=== PATIENT | male | born 1950 | race Caucasian/White ===

== ENCOUNTER 2016-12-18 18:48 | Inpatient (IN) | payer MEDICARE, OTHER ==
--- NOTE | 2016-12-18 19:23 | ED Physician Chart ---
Chief Complaint/HPI - Patient Information Date Seen:: 12/18/16 Time Seen:: 19:05 Chief Complaint:: Agitation History of Present Illness:: onset x 2 days of combativeness, anger, anxiety, and agitation; no report of SIs , H/As, Neck Pain, C/P, SOB, Abd. pain, A/N/V/D/C, fever, chills, or urinary s/s Allergies:: Allergies Allergy/AdvReac Type Severity Reaction Status Date / Time No Known Allergies Allergy Verified 12/18/16 18:59 Vitals:: Vital Signs - 8 hr 12/18/16 19:05 Temp 97.6 F HR 65 RR 16 BP 135/89 O2 Sat % 98 Historian:: Patient, EMS Review:: Nurse's Note Reviewed, EMS run form Reviewed, Transfer documents Reviewed Review of Systems - Review of Systems General/Constitutional: Fever, Chills, No weight loss, Weakness, No diaphoresis , No edema, No loss of appetite Skin: No skin lesions, No rash, No bruising Head: No headache, No light-headedness Eyes: No loss of vision, No pain, No diplopia ENT: No earache, Nasal drainage, No sore throat, Tinnitus Neck: No neck pain, No swelling, No thyromegaly, No stiffness, No mass noted Cardio Vascular: No chest pain, No palpitations, No PND, No orthopnea, No edema Pulmonary: No SOB, No cough, No sputum, No wheezing GI: No nausea, No vomiting, No diarrhea, No pain, No melena, No hematochezia, No constipation, No hematemesis G/U: No dysuria, No frequency, No hematuria Musculoskeletal: No bone or joint pain, No back pain, No muscle pain Endocrine: No polyuria, No polydipsia Psychiatric: Prior psych history, Depression, Anxiety, No suicidal ideation, No homicidal ideation, No auditory hallucination, No visual hallucination Hematopoietic: No bruising, No lymphadenopathy Allergic/Immuno: No urticaria, No angioedema Neurological: No syncope, No focal symptoms, Weakness, No paresthesia, No headache, No seizure, Dizziness, Confusion, Vertigo Past Medical History - Past Medical History Obtainable: Yes Past Medical History: HTN, CAD, CVA/TIA, Dyslipidemia Family History: Diabetes Melitus, HTN Social History: Non Smoker, No Alcohol, No Drug Use, Single, Care Facility Surgical History: None Psychiatricy History: Depression, Bipolar Medication: Reviewed Physical Exam - Physical Examination General/Constitutional: Awake, Well-developed, well-nourished, Alert, No distress, GCS 15, Non-toxic appearing, Ambulatory Head: Atraumatic Eyes: Lids, conjuctiva normal, PERRL, EOMI Skin: Nl inspection, No rash, No skin lesions, No ecchymosis, Well hydrated, No lymphadenopathy ENMT: External ears, nose nl, Nasal exam nl, Lips, teeth, gums nl Neck: Nontender, Full ROM w/o pain, No JVD, No nuchal rigidity, No bruit, No mass, No stridor Respiratory: Nl effort/Exclusion, Clear to Auscultation, No Wheeze/Rhonchi/Rales Cardio Vascular: RRR, No murmur, gallop, rubs, NL S1 S2 GI: No tenderness/rebounding/guarding, No organomegaly, No hernia, Normal BS's, Nondistended, No mass/bruits, No McBurney tenderness : No CVA tenderness Extremities: No tenderness or effusion, Full ROM, normal strength in all extremities, No edema, Normal digits & nails Neuro/Psych: Alert/oriented, DTR's symmetric, Normal sensory exam, Normal motor strength, Judgement/insight normal, Mood normal, Normal gait, No focal deficits Misc: normal gait, Normal back, No paraspinal tenderness ED Septic Shock - . Is Septic Shock (SBP<90, OR Lactate>4 mmol\L) present?: No - <6hrs of presentation: Vital Signs: Vital Signs - 8 hr 12/18/16 19:05 Temp 97.6 F HR 65 RR 16 BP 135/89 O2 Sat % 98 Reassessment (Disposition) - Reassessment Reassessment Condition:: Improved - Aftercare/Follow up Instructions Aftercare/Follow-Up Instructions:: Counseled pt regarding lab results/diagnosis & need follow up, Counseled pt & family regarding lab results/diagnosis & need follow up - Patient Disposition Discharge/Transfer:: Acute Care w/in this hosp Accepting Physician:: Dr. Fermin Admitted to:: [facility] Admitting Psych Physician:: Dr. Terry Condition at Disposition:: Stable, Improved ED Discharge Plan - Patient Disposition Instructions: Psychosis
[2016-12-18 20:29] LABS: URINE BILIRUBIN NEGATIVE (NEGATIVE); URINE BLOOD SMALL (NEGATIVE); URINE GLUCOSE (UA) NEGATIVE (NEGATIVE); URINE KETONE NEGATIVE (NEGATIVE); URINE PROTEIN 30 mg/dL (NEGATIVE); URINE UROBILINOGEN 0.2 E.U./dL (0.2 - 1.0)
[2016-12-18 21:03] LABS: AMPHETAMINE URINE NEGATIVE (NEGATIVE); BARBITURATES URINE NEGATIVE (NEGATIVE); METHADONE URINE NEGATIVE (NEGATIVE)
[2016-12-18 21:05] LABS: URINE COLOR YELLOW
[2016-12-18 21:23] LABS: URINE BACTERIA NONE SEEN /hpf (NONE SEEN); URINE EPITHELIAL CELLS NONE SEEN /lpf (FEW)
[2016-12-18] MEDS ORDERED: Magnesium Hydroxide (MOM) 30 mL UDC PO PRN ×2 (21:34→21:40)
[2016-12-18] MEDS ORDERED: Fleet Enema 135 mL RC PRN (21:34)
[2016-12-18 22:39] VITALS: BP 109/57
--- NOTE | 2016-12-19 01:09 | Admit Criteria Form ---
Admit Criteria Forms - Admit Criteria Diagnosis: PSYCHIATRIC DISORDERS (Place 'X' for any and all applicable criteria): Ongoing inpatient care may be needed for 1 or more of the following(1)(2)(3)(4)( 6)(7)(8): [ ]I. Danger to self or others not manageable at lower level of care. [ ]II. Grave disability (eg, inability to perform self care necessary at lower level of care) [ X]III. Agitation or inappropriate behavior interfering with care for primary condition (eg, attempting to discontinue lines or drains prematurely, unable to cooperate with respiratory care) [ ]IV. Severe disability or disorder indicated by ALL of the following: [ ]a) Severe behavioral health disorder-related symptoms or condition indicated by 1 or more of the following: [ ]i) Severe problem with cognition, memory, judgment, or impulse control [ ]ii) Severe clinical manifestations (eg, hallucinations, delusions, other acute psychotic symptoms, efe, extreme agitation or anxiety) [ ]b) Patient management at lower level of care is not feasible until acute intervention or modification is initiated. Extended stay beyond goal length of stay for the primary condition may be needed until ALLof the following are present(1)(2)(3)(4)(722)(23): [ ]a) Danger to self or others is absent or manageable at lower level of care [ ]b) Behavior crisis management, including physical or chemical restraints, is required and is not available at a lower level of care. [ ]c) Behavioral symptoms (e.g., agitation, somnolence, inappropriate behavior) are present, and are not manageable at a lower level of care. [ ]d) Patient cannot understand follow-up treatment and crisis plan. [ ]e) Provider and supports are sufficiently available at lower level of care. [ ]f) Patient can participate (e.g., verify absence of plan for harm) and is in needed of monitoring. The original [facility] [employer] content created by [facility] has been revised. The portions of the content which have been revised are identified through the use of italic text or in bold, and [facility] [facility] [employer] has neither reviewed nor approved the modified material. All other unmodified content is copyright [facility]. Please see references footnoted in the original [facility] edition 2017 Admit Criteria Met?: Yes
--- NOTE | 2016-12-19 09:14 | History and Physical ---
History of Present Illness - HPI Chief Complaint: increased in agitation HPI: Patient was send to [facility] for evaluation and treatment due to increased in agitation Vital Signs: Last Vital Signs Temp 98.4 F 12/18/16 21:26 Pulse 70 12/18/16 21:26 Resp 18 12/18/16 21:26 BP 109/57 12/18/16 22:01 Pulse Ox 95 12/18/16 21:26 Past Medical History Cardiovascular: Report: CHF, HTN Pulmonary: Report: No Pertinent Hx AP[employer]ISE COUNSELOR: Report: Dementia GI: Report: No Pertinent Hx Psych: Report: Psychosis, Schizophrenia Musculoskeletal: Report: No Pertinent Hx Rheumatologic: Report: No pertinent Hx Infectious Disease: Report: No Pertinent Hx Renal/: Report: No Pertinent Hx Endocrine: Report: No Pertinent Hx Dermatology: Report: No Pertinent Hx - Past Surgical History Past Surgical History: No pertinent Hx Family Medical History - Family Member Mother History Unknown: Yes Ethnicity: Unknown Living Status: Unknown Hx Family Cancer: No Hx Family Congestive Heart Failure: No Hx Family Stroke: No Hx Family Diabetes: No Hx Family HIV: No Hx Family COPD: No Hx Family Tuberculosis: No Social History Smoke: No Alcohol: None Drugs: None Lives: [facility] Domestic Violence: Negative - Medications Home Medications: Home Medication Medication Instructions Recorded Type Acetaminophen [Tylenol] 650 mg PO Q4HR PRN 12/18/16 History Aspirin [Aspirin Chewable] 81 mg PO DAILY 12/18/16 History Atorvastatin Calcium [Lipitor] 20 mg PO HS 12/18/16 History Isosorbide Dinitrate 5 mg PO BID 12/18/16 History Lisinopril [Zestril] 20 mg PO DAILY 12/18/16 History Magnesium Hydroxide [Milk of 30 ml PO HS PRN 12/18/16 History Magnesia] Meclizine [Antivert*] 12.5 mg PO Q8HR PRN 12/18/16 History Metoprolol Succinate [Toprol Xl] 50 mg PO DAILY 12/18/16 History Multivitamin [Multivitamins] 1 cap PO DAILY 12/18/16 History - Allergies Allergies/Adverse Reactions: Allergies Allergy/AdvReac Type Severity Reaction Status Date / Time No Known Allergies Allergy Verified 12/18/16 18:59 Review of Systems - Review of Systems Constitutional: Report: No Significant Eyes: Report: No Significant ENT: Report: No Significant Respiratory: Report: No Significant Cardiovascular: Report: No Significant Gastrointestinal: Report: No Significant Genitourinary: Report: No Significant Musculoskeletal: Report: No Significant Skin: Report: No Significant Neurological: Report: Other (Agitation) Physical Exam - Physical Exam HEENT: Report: Ears Nose Throat within normal limits Neck: Report: Within normal limits Cardiovascular Systems: Report: Regular, Rate and Rhythm Respiratory: Report: Breath Sounds are within normal limits Abdomen: Report: Non-tender to palpation Back: Report: Inspection of back is within normal limits. Extremities: Report: Non-tender to palpation. Skin: Report: Color of skin is within normal limits Neuro/Psych: Report: Disoriented to name time or place, Depressed affect, No motor deficit, No sensory deficit - Lab Results All Lab Results last 24 hours: Laboratory Last Values Urine Source CLEAN C 12/18/16 19:40 Urine Color YELLOW 12/18/16 19:40 Urine Clarity SLIGHT CLOUDY (CLEAR) 12/18/16 19:40 Urine pH 6.0 (4.6 - 8.0) 12/18/16 19:40 Ur Specific [place] 1.010 (1.005-1.030) 12/18/16 19:40 Urine Protein 30 mg/dL (NEGATIVE) H 12/18/16 19:40 Urine Glucose (UA) NEGATIVE mg/dL (NEGATIVE) 12/18/16 19:40 Urine Ketones NEGATIVE mg/dL (NEGATIVE) 12/18/16 19:40 Urine Blood SMALL (NEGATIVE) H 12/18/16 19:40 Urine Nitrate POSITIVE (NEGATIVE) H 12/18/16 19:40 Urine Bilirubin NEGATIVE (NEGATIVE) 12/18/16 19:40 Urine Urobilinogen 0.2 E.U./dL (0.2 - 1.0) 12/18/16 19:40 Ur Leukocyte Esterase MODERATE (NEGATIVE) H 12/18/16 19:40 Urine RBC 5-10 /hpf (0-5) H 12/18/16 19:40 Urine WBC 6-10 /hpf (0-5) H 12/18/16 19:40 Ur Epithelial Cells NONE SEEN /lpf (FEW) 12/18/16 19:40 Urine Bacteria NONE SEEN /hpf (NONE SEEN) 12/18/16 19:40 Urine Opiates Screen NEGATIVE (NEGATIVE) 12/18/16 19:40 Urine Methadone Screen NEGATIVE (NEGATIVE) 12/18/16 19:40 Ur Barbiturates Screen NEGATIVE (NEGATIVE) 12/18/16 19:40 Ur Tricyclics Screen NEGATIVE (NEGATIVE) 12/18/16 19:40 Ur Phencyclidine Scrn NEGATIVE (NEGATIVE) 12/18/16 19:40 Amphetamines Screen NEGATIVE (NEGATIVE) 12/18/16 19:40 U Methamphetamines Scrn NEGATIVE (NEGATIVE) 12/18/16 19:40 U Benzodiazepines Scrn NEGATIVE (NEGATIVE) 12/18/16 19:40 U Cocaine Metab Screen NEGATIVE (NEGATIVE) 12/18/16 19:40 U Cannabinoids Screen NEGATIVE (NEGATIVE) 12/18/16 19:40 - Assessment Assessment: Patient is awake, calm, confused, not oriented, patient refused to draw blood. Dx: Increased in agitation, HTN, CAD, Dyslipemia, Schizophrenia. - Plan Plan: Patient in under psychiatric care, and under SNF meds. Will continue to monitor.
[2016-12-19] MEDS: Aspirin 81mg Chewable Tab PO SCH (10:00)
[2016-12-19] MEDS: Multivitamin Tab PO SCH (10:00)
[2016-12-19] MEDS: Atorvastatin Calcium 10 MG TAB PO SCH (21:02)
--- NOTE | 2016-12-20 04:44 | Psychosocial Evaluation ---
DATE OF SERVICE: 12/19/2016 IDENTIFYING DATA: The patient is a 66-year-old male, resident of [facility] in [place]. Information obtained by directly interviewing the patient as well as reviewing the admission papers and talking to the staff members. The patient is a 66-year-old resident of the above mentioned post-acute care. The patient is reported to have been getting easily agitated and upset and the patient has been referred over here for stabilization. The patient has a history of multiple medical problems including coronary artery disease with multiple MIs and status post CABG and a history of CVA, hypertension, hyperlipidemia. The patient is reported to have been hospitalized on many occasions for the medical condition. The patient is not currently on any psychotropic medications, but has been getting easily agitated and not letting the staff to care for him. PAST PSYCHIATRIC HISTORY: Details are not known. MEDICAL HISTORY AND PHYSICAL EXAMINATION: Requested and done by Dr. Fermin. SUBSTANCE ABUSE HISTORY: None. SOCIAL HISTORY: The patient is a resident of a senior living facility. There is no history of alcohol use. STRENGTH AND ASSETS: The patient seems to be motivated. MENTAL STATUS EXAMINATION: The patient is a 66-year-old, looking older than his stated age, superficially cooperative. Eye contact is poor. Mood is very depressed. Affect is constricted. The patient is isolative and withdrawn. The patient is sleeping most of the time. The patient is not presenting with any agitation at this time. The patient denies any command hallucinations. The patient is not presenting with any delusions at this time. The patient is alert and he is oriented to the place but not to time. Insight and judgment at this time are noted to be fair. Impulse control seems to be poor prior to the hospitalization. The patient is not presenting with any threats to harm self or others. DIAGNOSTIC IMPRESSION: 1. Depressive disorder, not otherwise specified. B. Rule out dementia and behavioral change, secondary trait. IMMEDIATE TREATMENT PLAN: The patient is going to be observed on inpatient unit, provided with supportive psychotherapy. The patient is going to be only placed on the Ativan on a p.r.n. basis and the patient is going to be closely monitored. Once stabilized, the patient is going to be discharged to the facility for followup on outpatient basis. JOB# [id number]
--- NOTE | 2016-12-20 08:57 | General Progress Note ---
Subjective - Review of Systems Service Date: 12/20/16 Subjective: Patient is confused Objective - Results Recent Labs: Laboratory Last Values Urine Source CLEAN C 12/18/16 19:40 Urine Color YELLOW 12/18/16 19:40 Urine Clarity SLIGHT CLOUDY (CLEAR) 12/18/16 19:40 Urine pH 6.0 (4.6 - 8.0) 12/18/16 19:40 Ur Specific [place] 1.010 (1.005-1.030) 12/18/16 19:40 Urine Protein 30 mg/dL (NEGATIVE) H 12/18/16 19:40 Urine Glucose (UA) NEGATIVE mg/dL (NEGATIVE) 12/18/16 19:40 Urine Ketones NEGATIVE mg/dL (NEGATIVE) 12/18/16 19:40 Urine Blood SMALL (NEGATIVE) H 12/18/16 19:40 Urine Nitrate POSITIVE (NEGATIVE) H 12/18/16 19:40 Urine Bilirubin NEGATIVE (NEGATIVE) 12/18/16 19:40 Urine Urobilinogen 0.2 E.U./dL (0.2 - 1.0) 12/18/16 19:40 Ur Leukocyte Esterase MODERATE (NEGATIVE) H 12/18/16 19:40 Urine RBC 5-10 /hpf (0-5) H 12/18/16 19:40 Urine WBC 6-10 /hpf (0-5) H 12/18/16 19:40 Ur Epithelial Cells NONE SEEN /lpf (FEW) 12/18/16 19:40 Urine Bacteria NONE SEEN /hpf (NONE SEEN) 12/18/16 19:40 Urine Opiates Screen NEGATIVE (NEGATIVE) 12/18/16 19:40 Urine Methadone Screen NEGATIVE (NEGATIVE) 12/18/16 19:40 Ur Barbiturates Screen NEGATIVE (NEGATIVE) 12/18/16 19:40 Ur Tricyclics Screen NEGATIVE (NEGATIVE) 12/18/16 19:40 Ur Phencyclidine Scrn NEGATIVE (NEGATIVE) 12/18/16 19:40 Amphetamines Screen NEGATIVE (NEGATIVE) 12/18/16 19:40 U Methamphetamines Scrn NEGATIVE (NEGATIVE) 12/18/16 19:40 U Benzodiazepines Scrn NEGATIVE (NEGATIVE) 12/18/16 19:40 U Cocaine Metab Screen NEGATIVE (NEGATIVE) 12/18/16 19:40 U Cannabinoids Screen NEGATIVE (NEGATIVE) 12/18/16 19:40 - Physical Exam Vitals and I&O: Vital Signs Temp 97.6 F 12/19/16 14:00 Pulse 80 12/19/16 17:20 Resp 18 12/19/16 14:00 BP 138/94 12/19/16 17:20 Pulse Ox 97 12/19/16 14:00 Intake & Output 12/19/16 12/20/16 12/20/16 18:59 06:59 18:59 Intake Total 960 Output Total 400 Balance 560 Intake: Oral 960 Output: Urine 400 Other: # Bowel Movements 0 Active Medications: Current Medications Acetaminophen (Tylenol) 650 mg PO Q4HR PRN PRN Reason: Pain (Mild) Stop: 02/16/17 21:39 Aspirin (Aspirin Chewable) 81 mg PO DAILY [facility] Stop: 02/17/17 08:59 Last Admin: 12/19/16 10:00 Dose: 81 mg Atorvastatin Calcium (Lipitor) 20 mg PO HS [facility] Stop: 02/17/17 20:59 Last Admin: 12/19/16 21:02 Dose: 20 mg Isosorbide Dinitrate (Isordil) 5 mg PO BID [facility] Stop: 02/17/17 08:59 Last Admin: 12/19/16 17:20 Dose: Not Given Lisinopril (Zestril) 20 mg PO DAILY [facility] Stop: 02/17/17 08:59 Last Admin: 12/19/16 10:00 Dose: 20 mg Lorazepam (Ativan) 0.5 mg PO Q6H PRN; Protocol PRN Reason: Anxiety/Agitation Stop: 02/16/17 21:33 Magnesium Hydroxide (Milk Of Magnesia) 30 ml PO HS PRN PRN Reason: Constipation Stop: 02/16/17 21:33 Meclizine HCl (Antivert) 12.5 mg PO Q8HR PRN PRN Reason: Dizziness Stop: 02/16/17 21:39 Metoprolol Succinate (Toprol Xl) 50 mg PO DAILY [facility] Stop: 02/17/17 08:59 Last Admin: 12/19/16 10:00 Dose: 50 mg Multivitamins/Vitamin C (Theragran) 1 tab PO DAILY [facility] Stop: 02/17/17 08:59 Last Admin: 12/19/16 10:00 Dose: 1 tab Sodium Phosphate (Fleet Enema) 135 ml RC DAILY PRN PRN Reason: Constipation Stop: 10/22/17 21:33 Zolpidem Tartrate (Ambien) 5 mg PO HS PRN PRN Reason: Insomnia Stop: 02/16/17 21:33 General: Other (Sleeping but arousable) HEENT: Atraumatic Neck: Supple Cardiovascular: Regular rate Lungs: Clear to auscultation Abdomen: Bowel sounds, Soft, Other (Suprapubic catheter in place.) Extremities: Other (No edema) Neurological: Other (Unstable gait) Skin: Other (Warm and dry) Psych/Mental Status: Other (Confused, Not oriented) Assessment/Plan - Assessment Assessment: Patient is sleeping but arousable, calm, confused, not oriented, patient refused to draw blood. Dx: Increased in agitation, HTN, CAD, Dyslipemia, Schizophrenia, Suprapubic catheter in place. - Plan Plan: Patient in under psychiatric care, and under SNF meds. Will continue to monitor.
[2016-12-20] MEDS: Aspirin 81mg Chewable Tab PO SCH (16:27)
[2016-12-20] MEDS: Multivitamin Tab PO SCH (16:29)
[2016-12-20] MEDS: Atorvastatin Calcium 10 MG TAB PO SCH (20:45)
--- NOTE | 2016-12-21 07:36 | Progress Notes ---
DATE: 12/20/2016 PSYCHIATRIC PROGRESS NOTE SUBJECTIVE: Staff was spoken to. The patient is interviewed. Mood is noted to be irritable. Affect is constricted. Coping skills are noted to be poor. The patient is screaming and yelling. The patient could not be contained. The patient has to be given a dose of lorazepam to calm him down. The patient has been insisting that there is no reason for him to be in here and is demanding that he should be discharged. ASSESSMENT: The patient is still very agitated and impulsive. PLAN: To continue the patient with the supportive therapy. I encouraged the patient to verbalize the concerns rather than to act out. JOB# [id number]
[2016-12-21] MEDS: Multivitamin Tab PO SCH (09:00)
[2016-12-21] MEDS: Aspirin 81mg Chewable Tab PO SCH (09:00)
[2016-12-21] MEDS: Atorvastatin Calcium 10 MG TAB PO SCH (20:47)
[2016-12-22] MEDS: Aspirin 81mg Chewable Tab PO SCH (09:27)
[2016-12-22] MEDS: Multivitamin Tab PO SCH (09:28)
--- NOTE | 2016-12-22 10:55 | General Progress Note ---
Subjective - Review of Systems Service Date: 12/22/16 Subjective: Patient is confused Objective - Results Recent Labs: Laboratory Last Values Urine Source CLEAN C 12/18/16 19:40 Urine Color YELLOW 12/18/16 19:40 Urine Clarity SLIGHT CLOUDY (CLEAR) 12/18/16 19:40 Urine pH 6.0 (4.6 - 8.0) 12/18/16 19:40 Ur Specific [place] 1.010 (1.005-1.030) 12/18/16 19:40 Urine Protein 30 mg/dL (NEGATIVE) H 12/18/16 19:40 Urine Glucose (UA) NEGATIVE mg/dL (NEGATIVE) 12/18/16 19:40 Urine Ketones NEGATIVE mg/dL (NEGATIVE) 12/18/16 19:40 Urine Blood SMALL (NEGATIVE) H 12/18/16 19:40 Urine Nitrate POSITIVE (NEGATIVE) H 12/18/16 19:40 Urine Bilirubin NEGATIVE (NEGATIVE) 12/18/16 19:40 Urine Urobilinogen 0.2 E.U./dL (0.2 - 1.0) 12/18/16 19:40 Ur Leukocyte Esterase MODERATE (NEGATIVE) H 12/18/16 19:40 Urine RBC 5-10 /hpf (0-5) H 12/18/16 19:40 Urine WBC 6-10 /hpf (0-5) H 12/18/16 19:40 Ur Epithelial Cells NONE SEEN /lpf (FEW) 12/18/16 19:40 Urine Bacteria NONE SEEN /hpf (NONE SEEN) 12/18/16 19:40 Urine Opiates Screen NEGATIVE (NEGATIVE) 12/18/16 19:40 Urine Methadone Screen NEGATIVE (NEGATIVE) 12/18/16 19:40 Ur Barbiturates Screen NEGATIVE (NEGATIVE) 12/18/16 19:40 Ur Tricyclics Screen NEGATIVE (NEGATIVE) 12/18/16 19:40 Ur Phencyclidine Scrn NEGATIVE (NEGATIVE) 12/18/16 19:40 Amphetamines Screen NEGATIVE (NEGATIVE) 12/18/16 19:40 U Methamphetamines Scrn NEGATIVE (NEGATIVE) 12/18/16 19:40 U Benzodiazepines Scrn NEGATIVE (NEGATIVE) 12/18/16 19:40 U Cocaine Metab Screen NEGATIVE (NEGATIVE) 12/18/16 19:40 U Cannabinoids Screen NEGATIVE (NEGATIVE) 12/18/16 19:40 - Physical Exam Vitals and I&O: Vital Signs Temp 97.2 F 12/22/16 06:43 Pulse 68 12/22/16 09:27 Resp 20 12/22/16 06:43 BP 129/100 12/22/16 09:27 Pulse Ox 97 12/22/16 06:43 Intake & Output 12/21/16 12/22/16 12/22/16 18:59 06:59 18:59 Intake Total 1800 120 Output Total 600 750 Balance 1200 -630 Intake: Oral 1800 120 Output: Urine 600 750 Other: # Bowel Movements 0 Active Medications: Current Medications Acetaminophen (Tylenol) 650 mg PO Q4HR PRN PRN Reason: Pain (Mild) Stop: 02/16/17 21:39 Aspirin (Aspirin Chewable) 81 mg PO DAILY [facility] Stop: 02/17/17 08:59 Last Admin: 12/22/16 09:27 Dose: 81 mg Atorvastatin Calcium (Lipitor) 20 mg PO HS [facility] Stop: 02/17/17 20:59 Last Admin: 12/21/16 20:47 Dose: 20 mg Betamethasone/Clotrimazole (Lotrisone Cream) 1 appl TP BID [facility] Stop: 02/20/17 10:59 Isosorbide Dinitrate (Isordil) 5 mg PO BID [facility] Stop: 02/17/17 08:59 Last Admin: 12/22/16 09:27 Dose: 5 mg Lisinopril (Zestril) 20 mg PO DAILY [facility] Stop: 02/17/17 08:59 Last Admin: 12/22/16 09:26 Dose: 20 mg Lorazepam (Ativan) 0.5 mg PO Q6H PRN; Protocol PRN Reason: Anxiety/Agitation Stop: 02/16/17 21:33 Magnesium Hydroxide (Milk Of Magnesia) 30 ml PO HS PRN PRN Reason: Constipation Stop: 02/16/17 21:33 Meclizine HCl (Antivert) 12.5 mg PO Q8HR PRN PRN Reason: Dizziness Stop: 02/16/17 21:39 Last Admin: 12/20/16 17:27 Dose: 12.5 mg Metoprolol Succinate (Toprol Xl) 50 mg PO DAILY [facility] Stop: 02/17/17 08:59 Last Admin: 12/22/16 09:27 Dose: 50 mg Multivitamins/Vitamin C (Theragran) 1 tab PO DAILY [facility] Stop: 02/17/17 08:59 Last Admin: 12/22/16 09:28 Dose: 1 tab Mupirocin (Bactroban Oint) 1 appl NS BID [facility] Stop: 12/25/16 09:01 Last Admin: 12/21/16 17:52 Dose: Not Given Quetiapine Fumarate (Seroquel) 25 mg PO HS [facility] PRN Reason: Protocol Stop: 02/18/17 20:59 Sodium Phosphate (Fleet Enema) 135 ml RC DAILY PRN PRN Reason: Constipation Stop: 02/16/17 21:33 Zolpidem Tartrate (Ambien) 5 mg PO HS PRN PRN Reason: Insomnia Stop: 02/16/17 21:33 General: Other (Sleeping but arousable) HEENT: Atraumatic Neck: Supple Cardiovascular: Regular rate Lungs: Clear to auscultation Abdomen: Bowel sounds, Soft, Other (Suprapubic catheter in place.) Extremities: Other (No edema) Neurological: Other (Unstable gait) Skin: Other (Warm and dry) Psych/Mental Status: Other (Confused, Not oriented) Assessment/Plan - Assessment Assessment: Patient is sleeping but arousable, calm, confused, not oriented, patient refused to draw blood. Dx: Increased in agitation, HTN, CAD, Dyslipemia, Schizophrenia, Suprapubic catheter in place. - Plan Plan: Patient in under psychiatric care, and under SNF meds. Will continue to monitor.
[2016-12-22] MEDS: Betamethasone/Clotrimazole Cream 15 gm Tube TP SCH ×2 (16:07→17:33)
--- NOTE | 2016-12-22 19:03 | Progress Notes ---
DATE: 12/22/2016 PSYCHIATRIC PROGRESS NOTE SUBJECTIVE: Staff was spoken to. The patient is interviewed. Mood is noted to be irritable. Affect is constricted. The patient has been reluctant to comply with the medications and has been constantly testing the limits. Insight and judgment at this time are noted to be very much impaired. Impulse control is noted to be poor. The patient has been trying to be irritable. Affect is constricted. No side effects to medications are noted at this time. ASSESSMENT: The patient is still impulsive. PLAN: To continue the patient with the current medications. I encouraged the patient to verbalize the concerns rather than to act out. The Seroquel is going to be increased to 25 mg at bedtime and the patient is going to be encouraged to comply with the treatment. JOB# [id number]
[2016-12-22] MEDS: Atorvastatin Calcium 10 MG TAB PO SCH (20:36)
--- NOTE | 2016-12-23 02:35 | Progress Notes ---
DATE: 12/21/2016 PSYCHIATRIC PROGRESS NOTE SUBJECTIVE: Staff was spoken to. The patient is interviewed. Mood is noted to be irritable. Affect is constricted. The patient's insight and judgment at this time are noted to be impaired. Impulse control seems to be poor. The patient is refusing to comply with the medication. The patient is stating that he needs to go, but he does not want to go to the [facility] post[facility]acute care. The patient's coping skills are noted to be very poor. The patient is testing the limits. ASSESSMENT: The patient is still impulsive. PLAN: To continue the patient with supportive therapy. I encouraged the patient to verbalize the concerns rather than to act out. JOB# [id number]
[2016-12-23] MEDS: Multivitamin Tab PO SCH (08:56)
[2016-12-23] MEDS: Aspirin 81mg Chewable Tab PO SCH (08:58)
[2016-12-23] MEDS: Betamethasone/Clotrimazole Cream 15 gm Tube TP SCH ×2 (09:00→17:20)
--- NOTE | 2016-12-23 09:23 | General Progress Note ---
Subjective - Review of Systems Service Date: 12/23/17 Subjective: Patient is confused Objective - Results Recent Labs: Laboratory Last Values Urine Source CLEAN C 12/18/16 19:40 Urine Color YELLOW 12/18/16 19:40 Urine Clarity SLIGHT CLOUDY (CLEAR) 12/18/16 19:40 Urine pH 6.0 (4.6 - 8.0) 12/18/16 19:40 Ur Specific [place] 1.010 (1.005-1.030) 12/18/16 19:40 Urine Protein 30 mg/dL (NEGATIVE) H 12/18/16 19:40 Urine Glucose (UA) NEGATIVE mg/dL (NEGATIVE) 12/18/16 19:40 Urine Ketones NEGATIVE mg/dL (NEGATIVE) 12/18/16 19:40 Urine Blood SMALL (NEGATIVE) H 12/18/16 19:40 Urine Nitrate POSITIVE (NEGATIVE) H 12/18/16 19:40 Urine Bilirubin NEGATIVE (NEGATIVE) 12/18/16 19:40 Urine Urobilinogen 0.2 E.U./dL (0.2 - 1.0) 12/18/16 19:40 Ur Leukocyte Esterase MODERATE (NEGATIVE) H 12/18/16 19:40 Urine RBC 5-10 /hpf (0-5) H 12/18/16 19:40 Urine WBC 6-10 /hpf (0-5) H 12/18/16 19:40 Ur Epithelial Cells NONE SEEN /lpf (FEW) 12/18/16 19:40 Urine Bacteria NONE SEEN /hpf (NONE SEEN) 12/18/16 19:40 Urine Opiates Screen NEGATIVE (NEGATIVE) 12/18/16 19:40 Urine Methadone Screen NEGATIVE (NEGATIVE) 12/18/16 19:40 Ur Barbiturates Screen NEGATIVE (NEGATIVE) 12/18/16 19:40 Ur Tricyclics Screen NEGATIVE (NEGATIVE) 12/18/16 19:40 Ur Phencyclidine Scrn NEGATIVE (NEGATIVE) 12/18/16 19:40 Amphetamines Screen NEGATIVE (NEGATIVE) 12/18/16 19:40 U Methamphetamines Scrn NEGATIVE (NEGATIVE) 12/18/16 19:40 U Benzodiazepines Scrn NEGATIVE (NEGATIVE) 12/18/16 19:40 U Cocaine Metab Screen NEGATIVE (NEGATIVE) 12/18/16 19:40 U Cannabinoids Screen NEGATIVE (NEGATIVE) 12/18/16 19:40 - Physical Exam Vitals and I&O: Vital Signs Temp 98 F 12/23/16 06:58 Pulse 60 12/23/16 08:58 Resp 18 12/23/16 06:58 BP 134/85 12/23/16 08:58 Pulse Ox 95 12/23/16 06:58 Intake & Output 12/22/16 12/23/16 12/23/16 18:59 06:59 18:59 Intake Total 60 Balance 60 Intake: Oral 60 Other: # Voids 3 # Bowel Movements 0 Active Medications: Current Medications Acetaminophen (Tylenol) 650 mg PO Q4HR PRN PRN Reason: Pain (Mild) Stop: 02/16/17 21:39 Last Admin: 12/22/16 20:56 Dose: 650 mg Aspirin (Aspirin Chewable) 81 mg PO DAILY [facility] Stop: 02/17/17 08:59 Last Admin: 12/23/16 08:58 Dose: 81 mg Atorvastatin Calcium (Lipitor) 20 mg PO HS [facility] Stop: 02/17/17 20:59 Last Admin: 12/22/16 20:36 Dose: 20 mg Betamethasone/Clotrimazole (Lotrisone Cream) 1 appl TP BID [facility] Stop: 02/20/17 10:59 Last Admin: 12/23/16 09:00 Dose: 1 appl Isosorbide Dinitrate (Isordil) 5 mg PO BID [facility] Stop: 02/17/17 08:59 Last Admin: 12/23/16 08:58 Dose: 5 mg Lisinopril (Zestril) 20 mg PO DAILY [facility] Stop: 02/17/17 08:59 Last Admin: 12/23/16 08:58 Dose: 20 mg Lorazepam (Ativan) 0.5 mg PO Q6H PRN; Protocol PRN Reason: Anxiety/Agitation Stop: 02/16/17 21:33 Magnesium Hydroxide (Milk Of Magnesia) 30 ml PO HS PRN PRN Reason: Constipation Stop: 02/16/17 21:33 Meclizine HCl (Antivert) 12.5 mg PO Q8HR PRN PRN Reason: Dizziness Stop: 02/16/17 21:39 Last Admin: 12/20/16 17:27 Dose: 12.5 mg Metoprolol Succinate (Toprol Xl) 50 mg PO DAILY [facility] Stop: 02/17/17 08:59 Last Admin: 12/23/16 08:56 Dose: 50 mg Multivitamins/Vitamin C (Theragran) 1 tab PO DAILY [facility] Stop: 02/17/17 08:59 Last Admin: 12/23/16 08:56 Dose: 1 tab Mupirocin (Bactroban Oint) 1 appl NS BID [facility] Stop: 12/25/16 09:01 Last Admin: 12/23/16 09:07 Dose: Not Given Quetiapine Fumarate (Seroquel) 25 mg PO HS [facility] PRN Reason: Protocol Stop: 02/18/17 20:59 Last Admin: 12/22/16 20:36 Dose: 25 mg Sodium Phosphate (Fleet Enema) 135 ml RC DAILY PRN PRN Reason: Constipation Stop: 02/16/17 21:33 Zolpidem Tartrate (Ambien) 5 mg PO HS PRN PRN Reason: Insomnia Stop: 02/16/17 21:33 General: Other (Sleeping but arousable) HEENT: Atraumatic Neck: Supple Cardiovascular: Regular rate Lungs: Clear to auscultation Abdomen: Bowel sounds, Soft, Other (Suprapubic catheter in place.) Extremities: Other (No edema) Neurological: Other (Unstable gait) Skin: Other (Warm and dry) Psych/Mental Status: Other (Confused, Not oriented) Assessment/Plan - Assessment Assessment: Patient is sleeping but arousable, calm, confused, not oriented, patient refused to draw blood. Dx: Increased in agitation, HTN, CAD, Dyslipemia, Schizophrenia, Suprapubic catheter in place. - Plan Plan: Patient in under psychiatric care, and under SNF meds. Will continue to monitor.
[2016-12-23] MEDS: Atorvastatin Calcium 10 MG TAB PO SCH (20:46)
--- NOTE | 2016-12-24 00:34 | Progress Notes ---
DATE: 12/23/2016 PSYCHIATRIC PROGRESS NOTE SUBJECTIVE: Staff was spoken to. The patient is interviewed. Mood is noted to be irritable. Affect is constricted. Insight and judgment at this time are noted to be very much impaired. Impulse control is poor. The patient is testing the limits. The patient does not want to take any medications. The patient is very impulsive and is demanding that there is no reason for him to be taking the medications or being here. The patient's coping skills are noted to be very poor. The patient needs to be redirected. ASSESSMENT: The patient is still impulsive. PLAN: To continue the patient with supportive therapy. I encouraged the patient to verbalize the concerns rather than to act out. JOB# [id number]
--- NOTE | 2016-12-24 09:20 | General Progress Note ---
Subjective - Review of Systems Service Date: 12/24/16 Subjective: Patient is confused. Objective - Results Recent Labs: Laboratory Last Values Urine Source CLEAN C 12/18/16 19:40 Urine Color YELLOW 12/18/16 19:40 Urine Clarity SLIGHT CLOUDY (CLEAR) 12/18/16 19:40 Urine pH 6.0 (4.6 - 8.0) 12/18/16 19:40 Ur Specific [place] 1.010 (1.005-1.030) 12/18/16 19:40 Urine Protein 30 mg/dL (NEGATIVE) H 12/18/16 19:40 Urine Glucose (UA) NEGATIVE mg/dL (NEGATIVE) 12/18/16 19:40 Urine Ketones NEGATIVE mg/dL (NEGATIVE) 12/18/16 19:40 Urine Blood SMALL (NEGATIVE) H 12/18/16 19:40 Urine Nitrate POSITIVE (NEGATIVE) H 12/18/16 19:40 Urine Bilirubin NEGATIVE (NEGATIVE) 12/18/16 19:40 Urine Urobilinogen 0.2 E.U./dL (0.2 - 1.0) 12/18/16 19:40 Ur Leukocyte Esterase MODERATE (NEGATIVE) H 12/18/16 19:40 Urine RBC 5-10 /hpf (0-5) H 12/18/16 19:40 Urine WBC 6-10 /hpf (0-5) H 12/18/16 19:40 Ur Epithelial Cells NONE SEEN /lpf (FEW) 12/18/16 19:40 Urine Bacteria NONE SEEN /hpf (NONE SEEN) 12/18/16 19:40 Urine Opiates Screen NEGATIVE (NEGATIVE) 12/18/16 19:40 Urine Methadone Screen NEGATIVE (NEGATIVE) 12/18/16 19:40 Ur Barbiturates Screen NEGATIVE (NEGATIVE) 12/18/16 19:40 Ur Tricyclics Screen NEGATIVE (NEGATIVE) 12/18/16 19:40 Ur Phencyclidine Scrn NEGATIVE (NEGATIVE) 12/18/16 19:40 Amphetamines Screen NEGATIVE (NEGATIVE) 12/18/16 19:40 U Methamphetamines Scrn NEGATIVE (NEGATIVE) 12/18/16 19:40 U Benzodiazepines Scrn NEGATIVE (NEGATIVE) 12/18/16 19:40 U Cocaine Metab Screen NEGATIVE (NEGATIVE) 12/18/16 19:40 U Cannabinoids Screen NEGATIVE (NEGATIVE) 12/18/16 19:40 - Physical Exam Vitals and I&O: Vital Signs Temp 98.1 F 12/24/16 06:41 Pulse 62 12/24/16 06:41 Resp 19 12/24/16 06:41 BP 155/95 12/24/16 06:41 Pulse Ox 96 12/24/16 06:41 Intake & Output 12/23/16 12/24/16 12/24/16 18:59 06:59 18:59 Intake Total 560 Output Total 1 1455 Balance -1 -895 Weight (lbs) 102.648 kg Intake: Oral 560 Output: Urine 1455 Stool 1 Other: # Voids 2 # Bowel Movements 0 Active Medications: Current Medications Acetaminophen (Tylenol) 650 mg PO Q4HR PRN PRN Reason: Pain (Mild) Stop: 02/16/17 21:39 Last Admin: 12/23/16 20:46 Dose: 650 mg Aspirin (Aspirin Chewable) 81 mg PO DAILY [facility] Stop: 02/17/17 08:59 Last Admin: 12/23/16 08:58 Dose: 81 mg Atorvastatin Calcium (Lipitor) 20 mg PO HS [facility] Stop: 02/17/17 20:59 Last Admin: 12/23/16 20:46 Dose: 20 mg Betamethasone/Clotrimazole (Lotrisone Cream) 1 appl TP BID [facility] Stop: 02/20/17 10:59 Last Admin: 12/23/16 17:20 Dose: 1 appl Isosorbide Dinitrate (Isordil) 5 mg PO BID [facility] Stop: 02/17/17 08:59 Last Admin: 12/23/16 17:19 Dose: 5 mg Lisinopril (Zestril) 20 mg PO DAILY [facility] Stop: 02/17/17 08:59 Last Admin: 12/23/16 08:58 Dose: 20 mg Lorazepam (Ativan) 0.5 mg PO Q6H PRN; Protocol PRN Reason: Anxiety/Agitation Stop: 02/16/17 21:33 Magnesium Hydroxide (Milk Of Magnesia) 30 ml PO HS PRN PRN Reason: Constipation Stop: 02/16/17 21:33 Meclizine HCl (Antivert) 12.5 mg PO Q8HR PRN PRN Reason: Dizziness Stop: 02/16/17 21:39 Last Admin: 12/20/16 17:27 Dose: 12.5 mg Metoprolol Succinate (Toprol Xl) 50 mg PO DAILY [facility] Stop: 02/17/17 08:59 Last Admin: 12/23/16 08:56 Dose: 50 mg Multivitamins/Vitamin C (Theragran) 1 tab PO DAILY [facility] Stop: 02/17/17 08:59 Last Admin: 12/23/16 08:56 Dose: 1 tab Mupirocin (Bactroban Oint) 1 appl NS BID [facility] Stop: 12/25/16 09:01 Last Admin: 12/23/16 17:20 Dose: Not Given Quetiapine Fumarate (Seroquel) 25 mg PO HS [facility] PRN Reason: Protocol Stop: 02/18/17 20:59 Last Admin: 12/23/16 20:46 Dose: 25 mg Sodium Phosphate (Fleet Enema) 135 ml RC DAILY PRN PRN Reason: Constipation Stop: 02/16/17 21:33 Zolpidem Tartrate (Ambien) 5 mg PO HS PRN PRN Reason: Insomnia Stop: 02/16/17 21:33 General: Other (Sleeping but arousable) HEENT: Atraumatic Neck: Supple Cardiovascular: Regular rate Lungs: Clear to auscultation Abdomen: Bowel sounds, Soft, Other (Suprapubic catheter in place.) Extremities: Other (No edema) Neurological: Other (Unstable gait) Skin: Other (Warm and dry) Psych/Mental Status: Other (Confused, Not oriented) Assessment/Plan - Assessment Assessment: Patient is sleeping but arousable, calm, confused, not oriented, patient refused to draw blood. Dx: Increased in agitation, HTN, CAD, Dyslipemia, Schizophrenia, Suprapubic catheter in place. - Plan Plan: Patient in under psychiatric care, and under SNF meds. Will continue to monitor. Nutritional Asmnt/Malnutr-PDOC - Dietary Evaluation Malnutrition Findings (Please click <Entered> for more info): Nutritional Asmnt/Malnutrition Start: 12/23/16 16: 36 Text: Status: Complete Freq: Document 12/23/16 16:36 GSUN (Rec: 12/23/16 16:54 [email or web address] [email or web address]) Nutritional Asmnt/Malnutrition Patient General Information Nutritional Screening Moderate Risk Screening Diagnosis Depressize disorder Pertinent Medical Hx/Surgical Hx CHF, HTN, dementia, psychosis, schizophrenia Subjective Information 66 year old male. Pt was pleasant, gave short resposnes . Pt appeared obese, CBW 226. 3lb via bedscale, pt report UBW 224lb. Pt stated usually with fair appetite, food at [facility] ahs been tolerable. Avg PO intake mostly 100% of meals , skipped 2 meals on 12/20. RD ntoed with pt's food preferences. Teeth intact. Pt denied nutritional concerns at this time. Current Diet Order/ Nutrition Support SHASHI Pertinent Medications MOM, Theragran, Seroquel, Fleet Enema Pertinent Labs No pertinent labs. Nutritional Hx/Data Height 1.73 m Height (Calculated Centimeters) 172.7 Current Weight (lbs) 102.648 kg Weight (Calculated Kilograms) 102.6 Weight (Calculated Grams) 455864.0 Usual body Weight (lbs) 224 [place] Body Weight 154 Weight Status Obese GI Symptoms Cultural/Ethnic/Islam Belief Pt likes whole milk, fries, burgers. Pt dislikes fish, chicken, pork, turkey. Skin Integrity/Comment: Андрей Early. Skin intact. Current %PO Good (75-100%) Estimated Nutritional Goals BEE in Kcals: Adj wt of IBW Calories/Kcals/Kg AdjBW 172.1lb/78.2kg Kcals Calculated 1955-2346kcal (25-30kcal/kg) Protein: Adj wt of IBW Protein Calculated 78g (1g/kg) Fluid: ml 1955-2346ml (1ml/kcal) Nutritional Problem 1. Problem Problem Overweight related to Etiology undesirable food choices aeb Signs/Symptoms: pt likes whole milk, fries, burger Intervention/Recommendation Comments 1. Continue with current diet order. Avg PO intake is adequate. 2. FNS noted of pt's food preferences. Pt dislikes fish, chicken, pork, turkey. Expected Outcomes/Goals Expected Outcomes/Goals 1. PO intake to meet at least 75% of estimated nutritional needs.
[2016-12-24] MEDS: Aspirin 81mg Chewable Tab PO SCH (12:30)
[2016-12-24] MEDS: Betamethasone/Clotrimazole Cream 15 gm Tube TP SCH ×2 (12:30→17:49)
[2016-12-24] MEDS: Multivitamin Tab PO SCH (12:30)
[2016-12-24] MEDS: Atorvastatin Calcium 10 MG TAB PO SCH (20:36)
--- NOTE | 2016-12-25 04:45 | Progress Notes ---
DATE: 12/24/2016 PSYCHIATRIC PROGRESS NOTE SUBJECTIVE: Staff was spoken to. The patient is interviewed. Mood is noted to be irritable. Affect is constricted. The patient is demanding that there is no reason for him to be in here. The patient is on a pretty small dose of the Seroquel, but still has been refusing to comply with the medications. The patient's insight and judgment are noted to be very much impaired. Impulse control seems to be limited. Continues to be very irritable, angry and testing the limits. ASSESSMENT: The patient is still impulsive. PLAN: To continue the patient with supportive therapy. I encouraged the patient to verbalize the concerns rather than to act out. JOB# [id number]
[2016-12-25] MEDS: Aspirin 81mg Chewable Tab PO SCH (08:17)
[2016-12-25] MEDS: Multivitamin Tab PO SCH (08:17)
[2016-12-25] MEDS: Betamethasone/Clotrimazole Cream 15 gm Tube TP SCH ×2 (08:18→17:57)
--- NOTE | 2016-12-25 09:09 | General Progress Note ---
Subjective - Review of Systems Service Date: 12/25/16 Subjective: Patient is confused. Objective - Results Recent Labs: Laboratory Last Values Urine Source CLEAN C 12/18/16 19:40 Urine Color YELLOW 12/18/16 19:40 Urine Clarity SLIGHT CLOUDY (CLEAR) 12/18/16 19:40 Urine pH 6.0 (4.6 - 8.0) 12/18/16 19:40 Ur Specific [place] 1.010 (1.005-1.030) 12/18/16 19:40 Urine Protein 30 mg/dL (NEGATIVE) H 12/18/16 19:40 Urine Glucose (UA) NEGATIVE mg/dL (NEGATIVE) 12/18/16 19:40 Urine Ketones NEGATIVE mg/dL (NEGATIVE) 12/18/16 19:40 Urine Blood SMALL (NEGATIVE) H 12/18/16 19:40 Urine Nitrate POSITIVE (NEGATIVE) H 12/18/16 19:40 Urine Bilirubin NEGATIVE (NEGATIVE) 12/18/16 19:40 Urine Urobilinogen 0.2 E.U./dL (0.2 - 1.0) 12/18/16 19:40 Ur Leukocyte Esterase MODERATE (NEGATIVE) H 12/18/16 19:40 Urine RBC 5-10 /hpf (0-5) H 12/18/16 19:40 Urine WBC 6-10 /hpf (0-5) H 12/18/16 19:40 Ur Epithelial Cells NONE SEEN /lpf (FEW) 12/18/16 19:40 Urine Bacteria NONE SEEN /hpf (NONE SEEN) 12/18/16 19:40 Urine Opiates Screen NEGATIVE (NEGATIVE) 12/18/16 19:40 Urine Methadone Screen NEGATIVE (NEGATIVE) 12/18/16 19:40 Ur Barbiturates Screen NEGATIVE (NEGATIVE) 12/18/16 19:40 Ur Tricyclics Screen NEGATIVE (NEGATIVE) 12/18/16 19:40 Ur Phencyclidine Scrn NEGATIVE (NEGATIVE) 12/18/16 19:40 Amphetamines Screen NEGATIVE (NEGATIVE) 12/18/16 19:40 U Methamphetamines Scrn NEGATIVE (NEGATIVE) 12/18/16 19:40 U Benzodiazepines Scrn NEGATIVE (NEGATIVE) 12/18/16 19:40 U Cocaine Metab Screen NEGATIVE (NEGATIVE) 12/18/16 19:40 U Cannabinoids Screen NEGATIVE (NEGATIVE) 12/18/16 19:40 - Physical Exam Vitals and I&O: Vital Signs Temp 97.7 F 12/25/16 06:50 Pulse 58 12/25/16 08:18 Resp 18 12/25/16 06:50 BP 150/90 12/25/16 08:18 Pulse Ox 94 12/25/16 06:50 Intake & Output 12/24/16 12/25/16 12/25/16 18:59 06:59 18:59 Intake Total 950 240 Output Total 156 516 9007 Balance 350 -160 -1500 Intake: Oral 950 240 Output: Urine 235 097 1895 Other: # Voids 3 # Bowel Movements 1 0 Active Medications: Current Medications Acetaminophen (Tylenol) 650 mg PO Q4HR PRN PRN Reason: Pain (Mild) Stop: 02/16/17 21:39 Last Admin: 12/24/16 20:36 Dose: 650 mg Aspirin (Aspirin Chewable) 81 mg PO DAILY [facility] Stop: 02/17/17 08:59 Last Admin: 12/25/16 08:17 Dose: 81 mg Atorvastatin Calcium (Lipitor) 20 mg PO HS [facility] Stop: 02/17/17 20:59 Last Admin: 12/24/16 20:36 Dose: 20 mg Betamethasone/Clotrimazole (Lotrisone Cream) 1 appl TP BID [facility] Stop: 02/20/17 10:59 Last Admin: 12/25/16 08:18 Dose: 1 appl Isosorbide Dinitrate (Isordil) 5 mg PO BID [facility] Stop: 02/17/17 08:59 Last Admin: 12/25/16 08:18 Dose: 5 mg Lisinopril (Zestril) 40 mg PO DAILY [facility] Stop: 02/23/17 09:14 Lorazepam (Ativan) 0.5 mg PO Q6H PRN; Protocol PRN Reason: Anxiety/Agitation Stop: 02/16/17 21:33 Last Admin: 12/25/16 08:17 Dose: 0.5 mg Magnesium Hydroxide (Milk Of Magnesia) 30 ml PO HS PRN PRN Reason: Constipation Stop: 02/16/17 21:33 Meclizine HCl (Antivert) 12.5 mg PO Q8HR PRN PRN Reason: Dizziness Stop: 02/16/17 21:39 Last Admin: 12/20/16 17:27 Dose: 12.5 mg Metoprolol Succinate (Toprol Xl) 50 mg PO DAILY [facility] Stop: 02/17/17 08:59 Last Admin: 12/25/16 08:18 Dose: Not Given Multivitamins/Vitamin C (Theragran) 1 tab PO DAILY [facility] Stop: 02/17/17 08:59 Last Admin: 12/25/16 08:17 Dose: 1 tab Quetiapine Fumarate (Seroquel) 50 mg PO HS [facility] PRN Reason: Protocol Stop: 02/18/17 20:59 Last Admin: 12/24/16 20:36 Dose: 50 mg Sodium Phosphate (Fleet Enema) 135 ml RC DAILY PRN PRN Reason: Constipation Stop: 02/16/17 21:33 Zolpidem Tartrate (Ambien) 5 mg PO HS PRN PRN Reason: Insomnia Stop: 02/16/17 21:33 General: Other (Sleeping but arousable) HEENT: Atraumatic Neck: Supple Cardiovascular: Regular rate Lungs: Clear to auscultation Abdomen: Bowel sounds, Soft, Other (Suprapubic catheter in place.) Extremities: Other (No edema) Neurological: Other (Unstable gait) Skin: Other (Warm and dry) Psych/Mental Status: Other (Confused, Not oriented) Assessment/Plan - Assessment Assessment: Patient is sleeping but arousable, calm, confused, not oriented. BP not in control. Dx: Increased in agitation, HTN, CAD, Dyslipemia, Schizophrenia, Suprapubic catheter in place. - Plan Plan: Patient in under psychiatric. Lisinopril is increased. Will continue to monitor. Nutritional Asmnt/Malnutr-PDOC - Dietary Evaluation Malnutrition Findings (Please click <Entered> for more info): Nutritional Asmnt/Malnutrition Start: 12/23/16 16: 36 Text: Status: Complete Freq: Document 12/23/16 16:36 GSUN (Rec: 12/23/16 16:54 [email or web address] [email or web address]) Nutritional Asmnt/Malnutrition Patient General Information Nutritional Screening Moderate Risk Screening Diagnosis Depressize disorder Pertinent Medical Hx/Surgical Hx CHF, HTN, dementia, psychosis, schizophrenia Subjective Information 66 year old male. Pt was pleasant, gave short resposnes . Pt appeared obese, CBW 226. 3lb via bedscale, pt report UBW 224lb. Pt stated usually with fair appetite, food at [facility] ahs been tolerable. Avg PO intake mostly 100% of meals , skipped 2 meals on 12/20. RD ntoed with pt's food preferences. Teeth intact. Pt denied nutritional concerns at this time. Current Diet Order/ Nutrition Support SHASHI Pertinent Medications MOM, Theragran, Seroquel, Fleet Enema Pertinent Labs No pertinent labs. Nutritional Hx/Data Height 1.73 m Height (Calculated Centimeters) 172.7 Current Weight (lbs) 102.648 kg Weight (Calculated Kilograms) 102.6 Weight (Calculated Grams) 659938.0 Usual body Weight (lbs) 224 [place] Body Weight 154 Weight Status Obese GI Symptoms Cultural/Ethnic/Temple Belief Pt likes whole milk, fries, burgers. Pt dislikes fish, chicken, pork, turkey. Skin Integrity/Comment: Андрей 20. Skin intact. Current %PO Good (75-100%) Estimated Nutritional Goals BEE in Kcals: Adj wt of IBW Calories/Kcals/Kg AdjBW 172.1lb/78.2kg Kcals Calculated 1955-2346kcal (25-30kcal/kg) Protein: Adj wt of IBW Protein Calculated 78g (1g/kg) Fluid: ml 1955-2346ml (1ml/kcal) Nutritional Problem 1. Problem Problem Overweight related to Etiology undesirable food choices aeb Signs/Symptoms: pt likes whole milk, fries, burger Intervention/Recommendation Comments 1. Continue with current diet order. Avg PO intake is adequate. 2. FNS noted of pt's food preferences. Pt dislikes fish, chicken, pork, turkey. Expected Outcomes/Goals Expected Outcomes/Goals 1. PO intake to meet at least 75% of estimated nutritional needs.
[2016-12-25] MEDS: Atorvastatin Calcium 10 MG TAB PO SCH (20:59)
--- NOTE | 2016-12-25 23:30 | Progress Notes ---
DATE: 12/25/2016 SUBJECTIVE: Staff was spoken to. The patient is interviewed. Mood is noted to be irritable. Affect is constricted. The patient is still demanding that he should be discharged. The patient; however, has been compliant with the medication. The patient is currently on 50 mg of Seroquel and has been able to tolerate. Aggressive behavior has been under control at this time. No side effects to the medications are noted. ASSESSMENT: The patient's paranoia is resolving. Mood swings are coming under control. PLAN: To continue the patient with the supportive therapy. I encouraged the patient to verbalize the concerns rather than to act out. JOB# [id number]
[2016-12-26] MEDS: Multivitamin Tab PO SCH (08:19)
[2016-12-26] MEDS: Aspirin 81mg Chewable Tab PO SCH (08:19)
[2016-12-26] MEDS: Betamethasone/Clotrimazole Cream 15 gm Tube TP SCH ×2 (08:20→16:02)
--- NOTE | 2016-12-26 09:12 | General Progress Note ---
Subjective - Review of Systems Service Date: 12/26/16 Subjective: Patient is confused. Objective - Results Recent Labs: Laboratory Last Values Urine Source CLEAN C 12/18/16 19:40 Urine Color YELLOW 12/18/16 19:40 Urine Clarity SLIGHT CLOUDY (CLEAR) 12/18/16 19:40 Urine pH 6.0 (4.6 - 8.0) 12/18/16 19:40 Ur Specific [place] 1.010 (1.005-1.030) 12/18/16 19:40 Urine Protein 30 mg/dL (NEGATIVE) H 12/18/16 19:40 Urine Glucose (UA) NEGATIVE mg/dL (NEGATIVE) 12/18/16 19:40 Urine Ketones NEGATIVE mg/dL (NEGATIVE) 12/18/16 19:40 Urine Blood SMALL (NEGATIVE) H 12/18/16 19:40 Urine Nitrate POSITIVE (NEGATIVE) H 12/18/16 19:40 Urine Bilirubin NEGATIVE (NEGATIVE) 12/18/16 19:40 Urine Urobilinogen 0.2 E.U./dL (0.2 - 1.0) 12/18/16 19:40 Ur Leukocyte Esterase MODERATE (NEGATIVE) H 12/18/16 19:40 Urine RBC 5-10 /hpf (0-5) H 12/18/16 19:40 Urine WBC 6-10 /hpf (0-5) H 12/18/16 19:40 Ur Epithelial Cells NONE SEEN /lpf (FEW) 12/18/16 19:40 Urine Bacteria NONE SEEN /hpf (NONE SEEN) 12/18/16 19:40 Urine Opiates Screen NEGATIVE (NEGATIVE) 12/18/16 19:40 Urine Methadone Screen NEGATIVE (NEGATIVE) 12/18/16 19:40 Ur Barbiturates Screen NEGATIVE (NEGATIVE) 12/18/16 19:40 Ur Tricyclics Screen NEGATIVE (NEGATIVE) 12/18/16 19:40 Ur Phencyclidine Scrn NEGATIVE (NEGATIVE) 12/18/16 19:40 Amphetamines Screen NEGATIVE (NEGATIVE) 12/18/16 19:40 U Methamphetamines Scrn NEGATIVE (NEGATIVE) 12/18/16 19:40 U Benzodiazepines Scrn NEGATIVE (NEGATIVE) 12/18/16 19:40 U Cocaine Metab Screen NEGATIVE (NEGATIVE) 12/18/16 19:40 U Cannabinoids Screen NEGATIVE (NEGATIVE) 12/18/16 19:40 - Physical Exam Vitals and I&O: Vital Signs Temp 97.5 F 12/26/16 06:33 Pulse 64 12/26/16 08:20 Resp 20 12/26/16 06:33 BP 158/96 12/26/16 08:20 Pulse Ox 96 12/26/16 06:33 Intake & Output 12/25/16 12/26/16 12/26/16 18:59 06:59 18:59 Intake Total 2400 120 Output Total 1500 Balance 900 120 Intake: Oral 2400 120 Output: Urine 1500 Other: # Voids 3 # Bowel Movements 1 0 Active Medications: Current Medications Acetaminophen (Tylenol) 650 mg PO Q4HR PRN PRN Reason: Pain (Mild) Stop: 02/16/17 21:39 Last Admin: 12/24/16 20:36 Dose: 650 mg Aspirin (Aspirin Chewable) 81 mg PO DAILY [facility] Stop: 02/17/17 08:59 Last Admin: 12/26/16 08:19 Dose: 81 mg Atorvastatin Calcium (Lipitor) 20 mg PO HS [facility] Stop: 02/17/17 20:59 Last Admin: 12/25/16 20:59 Dose: 20 mg Betamethasone/Clotrimazole (Lotrisone Cream) 1 appl TP BID [facility] Stop: 02/20/17 10:59 Last Admin: 12/26/16 08:20 Dose: 1 appl Hydralazine HCl (Apresoline) 10 mg PO DAILY [facility] Stop: 02/24/17 09:14 Isosorbide Dinitrate (Isordil) 5 mg PO BID [facility] Stop: 02/17/17 08:59 Last Admin: 12/26/16 08:20 Dose: 5 mg Lisinopril (Zestril) 40 mg PO DAILY [facility] Stop: 02/23/17 09:14 Last Admin: 12/26/16 08:18 Dose: 40 mg Lorazepam (Ativan) 0.5 mg PO Q6H PRN; Protocol PRN Reason: Anxiety/Agitation Stop: 02/16/17 21:33 Last Admin: 12/25/16 08:17 Dose: 0.5 mg Magnesium Hydroxide (Milk Of Magnesia) 30 ml PO HS PRN PRN Reason: Constipation Stop: 02/16/17 21:33 Meclizine HCl (Antivert) 12.5 mg PO Q8HR PRN PRN Reason: Dizziness Stop: 02/16/17 21:39 Last Admin: 12/20/16 17:27 Dose: 12.5 mg Metoprolol Succinate (Toprol Xl) 50 mg PO DAILY [facility] Stop: 02/17/17 08:59 Last Admin: 12/26/16 08:19 Dose: 50 mg Multivitamins/Vitamin C (Theragran) 1 tab PO DAILY [facility] Stop: 02/17/17 08:59 Last Admin: 12/26/16 08:19 Dose: 1 tab Mupirocin (Bactroban Oint) 1 appl NS BID [facility] Stop: 12/30/16 17:01 Quetiapine Fumarate (Seroquel) 50 mg PO HS [facility] PRN Reason: Protocol Stop: 02/18/17 20:59 Last Admin: 12/25/16 20:59 Dose: 50 mg Sodium Phosphate (Fleet Enema) 135 ml RC DAILY PRN PRN Reason: Constipation Stop: 02/16/17 21:33 Zolpidem Tartrate (Ambien) 5 mg PO HS PRN PRN Reason: Insomnia Stop: 02/16/17 21:33 General: Other (Sleeping but arousable) HEENT: Atraumatic Neck: Supple Cardiovascular: Regular rate Lungs: Clear to auscultation Abdomen: Bowel sounds, Soft, Other (Suprapubic catheter in place.) Extremities: Other (No edema) Neurological: Other (Unstable gait) Skin: Other (Warm and dry) Psych/Mental Status: Other (Confused, Not oriented) Assessment/Plan - Assessment Assessment: Patient is sleeping but arousable, calm, confused, not oriented. BP not in control. Dx: Increased in agitation, HTN, CAD, Dyslipemia, Schizophrenia, Suprapubic catheter in place. - Plan Plan: Patient in under psychiatric. Hydralazine is added. Will continue to monitor. Nutritional Asmnt/Malnutr-PDOC - Dietary Evaluation Malnutrition Findings (Please click <Entered> for more info): Nutritional Asmnt/Malnutrition Start: 12/23/16 16: 36 Text: Status: Complete Freq: Document 12/23/16 16:36 GSUN (Rec: 12/23/16 16:54 [email or web address] [email or web address]) Nutritional Asmnt/Malnutrition Patient General Information Nutritional Screening Moderate Risk Screening Diagnosis Depressize disorder Pertinent Medical Hx/Surgical Hx CHF, HTN, dementia, psychosis, schizophrenia Subjective Information 66 year old male. Pt was pleasant, gave short resposnes . Pt appeared obese, CBW 226. 3lb via bedscale, pt report UBW 224lb. Pt stated usually with fair appetite, food at [place] ahs been tolerable. Avg PO intake mostly 100% of meals , skipped 2 meals on 12/20. RD ntoed with pt's food preferences. Teeth intact. Pt denied nutritional concerns at this time. Current Diet Order/ Nutrition Support SHASHI Pertinent Medications MOM, Theragran, Seroquel, Fleet Enema Pertinent Labs No pertinent labs. Nutritional Hx/Data Height 1.73 m Height (Calculated Centimeters) 172.7 Current Weight (lbs) 102.648 kg Weight (Calculated Kilograms) 102.6 Weight (Calculated Grams) 064313.0 Usual body Weight (lbs) 224 [place] Body Weight 154 Weight Status Obese GI Symptoms Cultural/Ethnic/Protestant Belief Pt likes whole milk, fries, burgers. Pt dislikes fish, chicken, pork, turkey. Skin Integrity/Comment: Андрей 20. Skin intact. Current %PO Good (75-100%) Estimated Nutritional Goals BEE in Kcals: Adj wt of IBW Calories/Kcals/Kg AdjBW 172.1lb/78.2kg Kcals Calculated 1955-2346kcal (25-30kcal/kg) Protein: Adj wt of IBW Protein Calculated 78g (1g/kg) Fluid: ml 1955-2346ml (1ml/kcal) Nutritional Problem 1. Problem Problem Overweight related to Etiology undesirable food choices aeb Signs/Symptoms: pt likes whole milk, fries, burger Intervention/Recommendation Comments 1. Continue with current diet order. Avg PO intake is adequate. 2. FNS noted of pt's food preferences. Pt dislikes fish, chicken, pork, turkey. Expected Outcomes/Goals Expected Outcomes/Goals 1. PO intake to meet at least 75% of estimated nutritional needs.
[2016-12-26] MEDS: Atorvastatin Calcium 10 MG TAB PO SCH (20:36)
--- NOTE | 2016-12-26 23:53 | Progress Notes ---
DATE: 12/26/2016 PSYCHIATRIC PROGRESS NOTE SUBJECTIVE: Staff was spoken to. The patient is interviewed. Mood is noted to be anxious. Affect is appropriate. Insight and judgment noted to be improving. Impulse control seems to be fair. Coping skills are also noted to be fair. The patient has been able to verbalize the concerns rather than to act out. The patient is not presenting with any threats to harm self or others. ASSESSMENT: The patient is stabilizing. PLAN: To discharge the patient today for followup on outpatient basis. [facility]# [id number]
[2016-12-27] MEDS: Multivitamin Tab PO SCH (09:12)
[2016-12-27] MEDS: Aspirin 81mg Chewable Tab PO SCH (09:12)
[2016-12-27] MEDS: Betamethasone/Clotrimazole Cream 15 gm Tube TP SCH ×2 (09:12→16:50)
--- NOTE | 2016-12-28 11:07 | Discharge Summary ---
DATE OF DISCHARGE: 12/27/2016 IDENTIFYING DATA: The patient is a 66-year-old male, resident of [facility]. Information obtained by directly interviewing the patient as well as reviewing the admission papers and they are reliable. JUSTIFICATION OF HOSPITALIZATION: The patient is admitted here for acute agitation, confusion and resisting care. HISTORY OF PRESENT ILLNESS: Please refer to the 12/18/2016 dictation done by me. Physical examination at the time of the admission was done by Dr. Fermin. HOSPITAL COURSE AND RESPONSE TO TREATMENT: The patient has been observed on the inpatient unit, provided with supportive psychotherapy. The patient has been placed on the Seroquel. He was very resistive in the beginning and later has been able to comply with the treatment. The patient has been requested to go to [facility] and the patient was able to be discharged, but the patient has finally changed his mind and did not want to go to [facility]. The patient has been finally discharged to [facility]. MENTAL STATUS EXAMINATION: At the time of discharge, patient's mood was noted to be anxious. Affect is appropriate. Not suicidal or homicidal. Coping skills are noted to be fair. Sleep and appetite are also noted to be fair. No aggressive behavior is noted, but the patient however has been mentioning he does not want to stay in these nursing homes and he would rather go on to the street or find a motel and go there. The patient has been provided the information that he needs treatment and needs to be in a fdc facility. The patient has finally agreed. DIAGNOSES AT THE TIME OF DISCHARGE: AXIS I: Psychotic disorder, not otherwise specified. AXIS II: None. AXIS III: As per Dr. Fermin. AFTERCARE PLAN: The patient is discharged to be followed up at [facility] by Dr. Carreon. JOB# [id number]
== END 2016-12-27 17:15 | DRG 885 ==
LOC: ER 18:48 → GERO 20:00
PROVIDERS: ADMIT Psychiatry & Neurology Psychiatry; ATTEND Psychiatry & Neurology Psychiatry
DX: F33.9 Major depressive disorder, recurrent, unspecified (principal); F03.91 Unspecified dementia, unspecified severity, with behavioral disturbance; I50.9 Heart failure, unspecified; I11.0 Hypertensive heart disease with heart failure; I25.10 Atherosclerotic heart disease of native coronary artery without angina pectoris; E78.5 Hyperlipidemia, unspecified; F20.9 Schizophrenia, unspecified; I25.2 Old myocardial infarction; F41.9 Anxiety disorder, unspecified; Z86.73 Personal history of transient ischemic attack (TIA), and cerebral infarction without residual deficits; Z83.3 Family history of diabetes mellitus; Z82.49 Family history of ischemic heart disease and other diseases of the circulatory system; Z79.82 Long term (current) use of aspirin; Z95.1 Presence of aortocoronary bypass graft
CPT/HCPCS: 80307; 81001-TC; 90899; 93005; G0410; J2060; Z7610